=== PATIENT | male | born 1955 | race Caucasian/White ===

== ENCOUNTER → 2022-06-02 | Outpatient (CLI) | payer MEDICARE ==
[~2022-06-02] MED LIST: BACL1TAB9 PO; ELIQ5TAB PO; GASTROGRAFIN SOLUTION 30ML (Q9963) As Ordered ONE; HYDR-3490 PO; ISOVUE-370 76% 100ML VIAL As Ordered ONE; LISI40TA4 PO; NAPR-885 PO; NORT25CA2 PO; RILU1TAB2 PO; TIZA10TA PO
== END ==
LOC: M RAD 09:22
PROVIDERS: ATTEND Colon & Rectal Surgery
DX: C24.0 Malignant neoplasm of extrahepatic bile duct (principal)
CPT/HCPCS: 71260; 74178; Q9963; Q9967

== ENCOUNTER → 2022-07-23 | Outpatient (CLI) | payer MEDICARE ==
[~2022-07-23] MED LIST changes: -GASTROGRAFIN SOLUTION 30ML (Q9963) As Ordered ONE; -ISOVUE-370 76% 100ML VIAL As Ordered ONE
== END ==
LOC: M PAL 14:21
PROVIDERS: ATTEND Nurse Practitioner Adult Health
DX: C25.9 Malignant neoplasm of pancreas, unspecified (principal); G12.21 Amyotrophic lateral sclerosis

== ENCOUNTER → 2022-07-23 | Outpatient (CLI) | payer MEDICARE | LOC: M ONCR 14:25 | PROVIDERS: ATTEND General Practice | DX: C25.0 Malignant neoplasm of head of pancreas (principal); G12.21 Amyotrophic lateral sclerosis; I48.91 Unspecified atrial fibrillation; Z79.01 Long term (current) use of anticoagulants; Z79.1 Long term (current) use of non-steroidal anti-inflammatories (NSAID); Z79.899 Other long term (current) drug therapy; Z80.0 Family history of malignant neoplasm of digestive organs; Z87.891 Personal history of nicotine dependence ==

== ENCOUNTER → 2022-08-06 | Outpatient (CLI) | payer MEDICARE ==
[~2022-08-06] MED LIST changes: +GASTROGRAFIN SOLUTION 30ML (Q9963) As Ordered ONE; +ISOVUE-370 76% 100ML VIAL As Ordered ONE
== END ==
LOC: M RAD 11:34
PROVIDERS: ATTEND General Practice
DX: C25.0 Malignant neoplasm of head of pancreas (principal)
CPT/HCPCS: 74170; Q9963; Q9967

== ENCOUNTER → 2022-08-21 | Outpatient (RCR) | payer MEDICARE ==
[~2022-08-21] MED LIST changes: -GASTROGRAFIN SOLUTION 30ML (Q9963) As Ordered ONE; -ISOVUE-370 76% 100ML VIAL As Ordered ONE; +ONDA4TAB6 PO
== END ==
LOC: M ONCR 08-06 07:30
PROVIDERS: ATTEND General Practice
DX: C25.0 Malignant neoplasm of head of pancreas (principal)

== ENCOUNTER → 2022-08-27 | Outpatient (CLI) | payer MEDICARE | LOC: M PAL 13:06 | PROVIDERS: ATTEND Nurse Practitioner Family | DX: Z53.9 Procedure and treatment not carried out, unspecified reason (principal) ==

== ENCOUNTER 2022-09-06 22:10 | Inpatient (IN) | payer MEDICARE ==
[~2022-09-06] VITALS: Ht 182.9 cm; Wt 79.5 kg
[2022-09-06 23:07] LABS: INR 1.07; PROTHROMBIN TIME 14.1 SECONDS (12.5-14.5)
[2022-09-06] MEDS ORDERED: NS 500 ML IV ONE (23:30)
[2022-09-06 23:33] LABS: ALBUMIN 2.4 GM/DL (3.2-5.2); ALT/SGPT 143 U/L (12-78); BILIRUBIN,DIRECT 0.1 MG/DL (0.0-0.2); BILIRUBIN,TOTAL 0.5 MG/DL (0.2-1.0); BLOOD UREA NITROGEN 16 MG/DL (7-18); CALCIUM LEVEL 7.7 MG/DL (8.8-10.2); CARBON DIOXIDE LEVEL 23 MEQ/L (21-32); CHLORIDE LEVEL 96 MEQ/L (98-107); CREATININE FOR GFR 0.79 MG/DL (0.70-1.30); GLOMERULAR FILTRATION RATE > 60.0 (>49); GLUCOSE, FASTING 116 MG/DL (70-100); POTASSIUM SERUM 3.8 MEQ/L (3.5-5.1); SODIUM LEVEL 127 MEQ/L (136-145); TOTAL PROTEIN 5.7 GM/DL (6.4-8.2)
[2022-09-07] MEDS ORDERED: cefTRIAXone SOD 2 GM in D5W MINI-BAG PLUS 50 ML IV ONE (00:10)
[2022-09-07] MEDS ORDERED: NS 2,220 ML in IV 1 EA IV ONE (00:10)
[2022-09-07] MEDS ORDERED: ELIQ5TAB PO (00:39)
[2022-09-07] MEDS ORDERED: HOME MED LIST COMPLETE! XX SCH (00:45)
[2022-09-07 00:46] LABS: RED BLOOD COUNT 4.07 10^6/uL (4.30-6.10); WHITE BLOOD COUNT 3.9 10^3/uL (4.0-10.0)
[2022-09-07 00:47] LABS: BASO % 0.5 % (0.0-1.0); EOS % 0.3 % (0.0-3.0); HEMOGLOBIN 12.1 g/dl (13.5-17.5); LYMPH # 0.4 10^3/uL (1.5-5.0); MEAN CORPUSCULAR HEMOGLOBIN 29.7 pg (27.0-33.0); MEAN CORPUSCULAR HGB CONC 34.6 g/dl (32.0-36.5); MONO # 0.5 10^3/uL (0.0-0.8); MONO % 11.8 % (2.0-8.0); NEUTROPHILS # 2.9 10^3/uL (1.5-8.5); NEUTROPHILS % 75.1 % (36.0-66.0); PLATELET COUNT, AUTOMATED 237 10^3/uL (150-450)
[2022-09-07 05:15] LABS: OSMOLALITY URINE 472 MOSM/KG (50-1400)
[2022-09-07 05:29] LABS: SODIUM,RANDOM URINE 74 MEQ/L
[2022-09-07] MEDS ORDERED: NS 1,000 ML IV SCH (05:30)
[2022-09-07] MEDS ORDERED: REMDESIVIR 200 MG in NS 250 ML IV ONE (06:00)
[2022-09-07 06:47] LABS: BLOOD UREA NITROGEN 13 MG/DL (7-18); CALCIUM LEVEL 7.5 MG/DL (8.8-10.2); CARBON DIOXIDE LEVEL 24 MEQ/L (21-32); CHLORIDE LEVEL 100 MEQ/L (98-107); CREATININE FOR GFR 0.62 MG/DL (0.70-1.30); GLOMERULAR FILTRATION RATE > 60.0 (>49); GLUCOSE, FASTING 93 MG/DL (70-100); POTASSIUM SERUM 3.5 MEQ/L (3.5-5.1); SODIUM LEVEL 130 MEQ/L (136-145); URIC ACID 3.6 MG/DL (3.5-7.2)
[2022-09-07] MEDS ORDERED: SODIUM CHLORIDE 0.9% INJ 10 ML SYR IV ONE (08:00)
[2022-09-07] MEDS ORDERED: PILL CUTTER 1 EACH XX ONE ×2 (08:37→12:41)
[2022-09-07] MEDS: APIXABAN 5 MG TAB (ELIQUIS) PO SCH ×2 (08:56→21:54)
[2022-09-07] MEDS: BACLOFEN 10 MG TAB PO SCH ×4 (08:56→21:52)
[2022-09-07] MEDS: tiZANidine 4 MG TAB PO SCH ×3 (08:57→21:54)
[2022-09-07] MEDS ORDERED: ACETAMINOPHEN 500 MG TAB PO PRN (10:00)
[2022-09-07] MEDS ORDERED: NS 500 ML IV ONE (10:30)
[2022-09-07 10:59] LABS: BLOOD UREA NITROGEN 12 MG/DL (7-18); CALCIUM LEVEL 7.5 MG/DL (8.8-10.2); CARBON DIOXIDE LEVEL 23 MEQ/L (21-32); CHLORIDE LEVEL 100 MEQ/L (98-107); GLOMERULAR FILTRATION RATE > 60.0 (>49); GLUCOSE, FASTING 165 MG/DL (70-100); POTASSIUM SERUM 3.3 MEQ/L (3.5-5.1); SODIUM LEVEL 130 MEQ/L (136-145)
[2022-09-07] MEDS ORDERED: POTASSIUM CHLORIDE 10MEQ SR TABLET PO ONE (12:35)
[2022-09-07] MEDS: NS 1,000 ML IV SCH (13:05)
[2022-09-07 17:15] LABS: BLOOD UREA NITROGEN 12 MG/DL (7-18); CALCIUM LEVEL 7.6 MG/DL (8.8-10.2); CARBON DIOXIDE LEVEL 24 MEQ/L (21-32); CHLORIDE LEVEL 103 MEQ/L (98-107); CREATININE FOR GFR 0.66 MG/DL (0.70-1.30); GLOMERULAR FILTRATION RATE > 60.0 (>49); GLUCOSE, FASTING 90 MG/DL (70-100); POTASSIUM SERUM 3.5 MEQ/L (3.5-5.1); SODIUM LEVEL 134 MEQ/L (136-145)
[2022-09-07] MEDS ORDERED: RILUZOLE 50 MG PO SCH (17:30)
[2022-09-07 17:50] VITALS: BP 99/65
[2022-09-07 20:00] VITALS: BP 109/74; O2SAT 95
[2022-09-07 21:01] LABS: BLOOD UREA NITROGEN 12 MG/DL (7-18); CALCIUM LEVEL 7.6 MG/DL (8.8-10.2); CARBON DIOXIDE LEVEL 23 MEQ/L (21-32); CHLORIDE LEVEL 102 MEQ/L (98-107); CREATININE FOR GFR 0.63 MG/DL (0.70-1.30); GLOMERULAR FILTRATION RATE > 60.0 (>49); GLUCOSE, FASTING 84 MG/DL (70-100); POTASSIUM SERUM 3.6 MEQ/L (3.5-5.1); SODIUM LEVEL 133 MEQ/L (136-145)
[2022-09-07] MEDS: NORTRIPTYLINE 25 MG CAP PO SCH (21:54)
[2022-09-07 23:45] VITALS: BP 114/62
[2022-09-08] VITALS (8 sets, daily range): BP systolic 110–123; BP diastolic 63–80; O2SAT 94–96
[2022-09-08] MEDS: UNRESOLVED PATIENT OWN MED ORDER XX SCH (00:01)
[2022-09-08 00:52] LABS: BLOOD UREA NITROGEN 11 MG/DL (7-18); CALCIUM LEVEL 7.3 MG/DL (8.8-10.2); CARBON DIOXIDE LEVEL 24 MEQ/L (21-32); CHLORIDE LEVEL 103 MEQ/L (98-107); CREATININE FOR GFR 0.68 MG/DL (0.70-1.30); GLOMERULAR FILTRATION RATE > 60.0 (>49); GLUCOSE, FASTING 154 MG/DL (70-100); POTASSIUM SERUM 3.6 MEQ/L (3.5-5.1); SODIUM LEVEL 134 MEQ/L (136-145)
[2022-09-08] MEDS: BACLOFEN 10 MG TAB PO SCH ×6 (00:57→21:50)
[2022-09-08] MEDS ORDERED: ACETAMINOPHEN TAB 650MG DOSE (2X325MG) PO PRN (01:00)
[2022-09-08 04:12] LABS: BASO % 1.1 % (0.0-1.0); EOS % 1.4 % (0.0-3.0); HEMATOCRIT 34.8 % (42.0-52.0); HEMOGLOBIN 11.4 g/dl (13.5-17.5); LYMPH # 0.6 10^3/uL (1.5-5.0); LYMPH % 22.1 % (24.0-44.0); MEAN CORPUSCULAR HEMOGLOBIN 28.9 pg (27.0-33.0); MEAN CORPUSCULAR HGB CONC 32.8 g/dl (32.0-36.5); MEAN CORPUSCULAR VOLUME 88.1 fl (80.0-96.0); MONO # 0.3 10^3/uL (0.0-0.8); MONO % 10.9 % (2.0-8.0); NEUTROPHILS # 1.8 10^3/uL (1.5-8.5); NEUTROPHILS % 63.8 % (36.0-66.0); PLATELET COUNT, AUTOMATED 214 10^3/uL (150-450); RED BLOOD COUNT 3.95 10^6/uL (4.30-6.10); WHITE BLOOD COUNT 2.9 10^3/uL (4.0-10.0)
[2022-09-08 04:43] LABS: ALBUMIN 2.2 GM/DL (3.2-5.2); ALT/SGPT 102 U/L (12-78); BILIRUBIN,DIRECT 0.1 MG/DL (0.0-0.2); BILIRUBIN,TOTAL 0.3 MG/DL (0.2-1.0); BLOOD UREA NITROGEN 10 MG/DL (7-18); CALCIUM LEVEL 7.3 MG/DL (8.8-10.2); CARBON DIOXIDE LEVEL 24 MEQ/L (21-32); CHLORIDE LEVEL 103 MEQ/L (98-107); GLOMERULAR FILTRATION RATE > 60.0 (>49); GLUCOSE, FASTING 92 MG/DL (70-100); POTASSIUM SERUM 3.4 MEQ/L (3.5-5.1); SODIUM LEVEL 134 MEQ/L (136-145); TOTAL PROTEIN 4.9 GM/DL (6.4-8.2)
[2022-09-08] MEDS: NS 1,000 ML IV SCH (05:15)
[2022-09-08] MEDS ORDERED: REMDESIVIR 100 MG in NS 250 ML IV SCH (06:00)
[2022-09-08] MEDS ORDERED: SODIUM CHLORIDE 0.9% INJ 10 ML SYR IV SCH (07:00)
[2022-09-08] MEDS: tiZANidine 4 MG TAB PO SCH ×3 (08:00→21:52)
[2022-09-08] MEDS ORDERED: FLUBLOK(EGG FREE)(QUAD)INFLUENZA VACC 0.5ML SYRINGE 18YRS & OLDER IM.IMMUN ONE (09:00)
[2022-09-08] MEDS: POTASSIUM CHLORIDE 10MEQ SR TABLET PO SCH (12:09)
[2022-09-08] MEDS: APIXABAN 5 MG TAB (ELIQUIS) PO SCH ×2 (12:09→21:52)
[2022-09-08] MEDS: NORTRIPTYLINE 25 MG CAP PO SCH (21:52)
[2022-09-09] VITALS: BP 113/76; O2SAT 95
[2022-09-09] MEDS: UNRESOLVED PATIENT OWN MED ORDER XX SCH ×2 (00:01→20:28)
[2022-09-09] MEDS: BACLOFEN 10 MG TAB PO SCH ×6 (00:52→20:28)
[2022-09-09 04:00] VITALS: BP 136/80; O2SAT 95
[2022-09-09 05:51] LABS: BASO % 0.4 % (0.0-1.0); EOS # 0.1 10^3/uL (0.0-0.5); EOS % 2.8 % (0.0-3.0); HEMATOCRIT 35.7 % (42.0-52.0); HEMOGLOBIN 11.9 g/dl (13.5-17.5); LYMPH # 0.7 10^3/uL (1.5-5.0); MEAN CORPUSCULAR HGB CONC 33.3 g/dl (32.0-36.5); MEAN CORPUSCULAR VOLUME 87.1 fl (80.0-96.0); MONO # 0.2 10^3/uL (0.0-0.8); MONO % 7.4 % (2.0-8.0); NEUTROPHILS # 1.8 10^3/uL (1.5-8.5); NEUTROPHILS % 64.7 % (36.0-66.0); PLATELET COUNT, AUTOMATED 208 10^3/uL (150-450); WHITE BLOOD COUNT 2.8 10^3/uL (4.0-10.0)
[2022-09-09 06:32] LABS: ALBUMIN 2.2 GM/DL (3.2-5.2); ALT/SGPT 78 U/L (12-78); BILIRUBIN,TOTAL 0.4 MG/DL (0.2-1.0); BLOOD UREA NITROGEN 8 MG/DL (7-18); CALCIUM LEVEL 7.6 MG/DL (8.8-10.2); CARBON DIOXIDE LEVEL 26 MEQ/L (21-32); CHLORIDE LEVEL 103 MEQ/L (98-107); CREATININE FOR GFR 0.53 MG/DL (0.70-1.30); GLOMERULAR FILTRATION RATE > 60.0 (>49); GLUCOSE, FASTING 83 MG/DL (70-100); POTASSIUM SERUM 3.7 MEQ/L (3.5-5.1); SODIUM LEVEL 135 MEQ/L (136-145); TOTAL PROTEIN 4.9 GM/DL (6.4-8.2)
[2022-09-09 08:00] VITALS: BP 122/88; O2SAT 95
[2022-09-09] MEDS: APIXABAN 5 MG TAB (ELIQUIS) PO SCH ×2 (08:44→20:28)
[2022-09-09] MEDS: tiZANidine 4 MG TAB PO SCH ×3 (08:44→20:28)
[2022-09-09] MEDS: POTASSIUM CHLORIDE 10MEQ SR TABLET PO SCH (08:44)
[2022-09-09 12:14] VITALS: BP 113/71
[2022-09-09 20:00] VITALS: O2SAT 95
[2022-09-09] MEDS: NORTRIPTYLINE 25 MG CAP PO SCH (20:28)
[2022-09-09 20:33] VITALS: BP 132/80
[2022-09-10] VITALS: O2SAT 94
[2022-09-10] MEDS: BACLOFEN 10 MG TAB PO SCH ×6 (00:20→20:41)
[2022-09-10 04:30] VITALS: BP 122/74
[2022-09-10 06:28] LABS: BASO % 0.8 % (0.0-1.0); EOS # 0.1 10^3/uL (0.0-0.5); EOS % 3.5 % (0.0-3.0); HEMATOCRIT 36.5 % (42.0-52.0); HEMOGLOBIN 12.4 g/dl (13.5-17.5); LYMPH # 0.7 10^3/uL (1.5-5.0); LYMPH % 26.1 % (24.0-44.0); MEAN CORPUSCULAR HEMOGLOBIN 29.2 pg (27.0-33.0); MEAN CORPUSCULAR VOLUME 85.9 fl (80.0-96.0); MONO # 0.2 10^3/uL (0.0-0.8); MONO % 7.4 % (2.0-8.0); NEUTROPHILS # 1.6 10^3/uL (1.5-8.5); PLATELET COUNT, AUTOMATED 214 10^3/uL (150-450); RED BLOOD COUNT 4.25 10^6/uL (4.30-6.10); WHITE BLOOD COUNT 2.6 10^3/uL (4.0-10.0)
[2022-09-10 07:00] LABS: ALBUMIN 2.3 GM/DL (3.2-5.2); ALT/SGPT 96 U/L (12-78); BILIRUBIN,TOTAL 0.4 MG/DL (0.2-1.0); BLOOD UREA NITROGEN 9 MG/DL (7-18); CALCIUM LEVEL 7.7 MG/DL (8.8-10.2); CARBON DIOXIDE LEVEL 26 MEQ/L (21-32); CHLORIDE LEVEL 102 MEQ/L (98-107); CREATININE FOR GFR 0.52 MG/DL (0.70-1.30); GLOMERULAR FILTRATION RATE > 60.0 (>49); GLUCOSE, FASTING 89 MG/DL (70-100); POTASSIUM SERUM 3.9 MEQ/L (3.5-5.1); SODIUM LEVEL 135 MEQ/L (136-145)
[2022-09-10 08:00] VITALS: O2SAT 95
[2022-09-10] MEDS: tiZANidine 4 MG TAB PO SCH ×3 (08:00→20:41)
[2022-09-10] MEDS: APIXABAN 5 MG TAB (ELIQUIS) PO SCH ×2 (10:25→20:41)
[2022-09-10] MEDS: POTASSIUM CHLORIDE 10MEQ SR TABLET PO SCH (10:28)
[2022-09-10 12:00] VITALS: O2SAT 95
[2022-09-10 16:55] VITALS: O2SAT 95
[2022-09-10] MEDS: UNRESOLVED PATIENT OWN MED ORDER XX SCH (20:41)
[2022-09-10] MEDS: NORTRIPTYLINE 25 MG CAP PO SCH (20:41)
[2022-09-11] MEDS: BACLOFEN 10 MG TAB PO SCH ×6 (00:16→20:45)
[2022-09-11 06:00] VITALS: BP 128/82
[2022-09-11 08:00] VITALS: O2SAT 92
[2022-09-11] MEDS: tiZANidine 4 MG TAB PO SCH ×3 (09:34→20:46)
[2022-09-11] MEDS: POTASSIUM CHLORIDE 10MEQ SR TABLET PO SCH (09:34)
[2022-09-11] MEDS: APIXABAN 5 MG TAB (ELIQUIS) PO SCH ×2 (09:34→20:46)
[2022-09-11 12:00] VITALS: O2SAT 92
[2022-09-11 16:00] VITALS: O2SAT 92
[2022-09-11 17:50] VITALS: BP 130/78
[2022-09-11] MEDS: NORTRIPTYLINE 25 MG CAP PO SCH (20:46)
[2022-09-11 20:55] VITALS: O2SAT 94
[2022-09-12] MEDS: BACLOFEN 10 MG TAB PO SCH ×6 (00:20→20:41)
[2022-09-12 00:23] VITALS: O2SAT 94
[2022-09-12 04:45] VITALS: BP 137/74; O2SAT 90
[2022-09-12] MEDS: POTASSIUM CHLORIDE 10MEQ SR TABLET PO SCH (08:56)
[2022-09-12] MEDS: APIXABAN 5 MG TAB (ELIQUIS) PO SCH ×2 (08:57→20:41)
[2022-09-12] MEDS: tiZANidine 4 MG TAB PO SCH ×3 (08:57→20:41)
[2022-09-12 20:00] VITALS: O2SAT 93
[2022-09-12] MEDS: NORTRIPTYLINE 25 MG CAP PO SCH (20:42)
[2022-09-13] VITALS: O2SAT 94
[2022-09-13] MEDS: BACLOFEN 10 MG TAB PO SCH ×7 (00:40→23:55)
[2022-09-13 04:50] VITALS: BP 125/77
[2022-09-13 04:55] VITALS: O2SAT 93
[2022-09-13] MEDS: POTASSIUM CHLORIDE 10MEQ SR TABLET PO SCH (09:27)
[2022-09-13] MEDS: tiZANidine 4 MG TAB PO SCH ×3 (09:27→20:11)
[2022-09-13] MEDS: APIXABAN 5 MG TAB (ELIQUIS) PO SCH ×2 (09:27→20:12)
[2022-09-13] MEDS: NORTRIPTYLINE 25 MG CAP PO SCH (20:11)
[2022-09-14] MEDS: BACLOFEN 10 MG TAB PO SCH ×6 (03:57→23:21)
[2022-09-14 06:00] VITALS: BP 130/77
[2022-09-14 08:00] VITALS: O2SAT 92
[2022-09-14] MEDS: APIXABAN 5 MG TAB (ELIQUIS) PO SCH ×2 (08:18→20:17)
[2022-09-14] MEDS: tiZANidine 4 MG TAB PO SCH ×3 (08:18→20:19)
[2022-09-14] MEDS: POTASSIUM CHLORIDE 10MEQ SR TABLET PO SCH (08:18)
[2022-09-14 12:00] VITALS: O2SAT 93
[2022-09-14 16:00] VITALS: O2SAT 94
[2022-09-14 18:00] VITALS: O2SAT 94
[2022-09-14 19:50] VITALS: BP 145/89
[2022-09-14] MEDS: NORTRIPTYLINE 25 MG CAP PO SCH (20:17)
[2022-09-15] MEDS: BACLOFEN 10 MG TAB PO SCH ×5 (03:32→19:28)
[2022-09-15 04:00] VITALS: BP 139/97
[2022-09-15 08:00] VITALS: O2SAT 93
[2022-09-15] MEDS: APIXABAN 5 MG TAB (ELIQUIS) PO SCH ×2 (09:40→19:28)
[2022-09-15] MEDS: POTASSIUM CHLORIDE 10MEQ SR TABLET PO SCH (09:40)
[2022-09-15] MEDS: tiZANidine 4 MG TAB PO SCH ×3 (09:40→19:28)
[2022-09-15 12:00] VITALS: O2SAT 94
[2022-09-15] MEDS: NORTRIPTYLINE 25 MG CAP PO SCH (19:27)
[2022-09-16] MEDS: BACLOFEN 10 MG TAB PO SCH ×6 (00:24→20:29)
[2022-09-16 04:30] VITALS: BP 137/82
[2022-09-16] MEDS: APIXABAN 5 MG TAB (ELIQUIS) PO SCH ×2 (09:02→20:29)
[2022-09-16] MEDS: POTASSIUM CHLORIDE 10MEQ SR TABLET PO SCH (09:02)
[2022-09-16] MEDS: tiZANidine 4 MG TAB PO SCH ×3 (09:02→20:29)
[2022-09-16] MEDS ORDERED: POTA-136 PO (14:55)
[2022-09-16] MEDS ORDERED: RILUZOLE 50 MG PO SCH (16:35)
[2022-09-16] MEDS: NORTRIPTYLINE 25 MG CAP PO SCH (20:29)
[2022-09-17] MEDS: BACLOFEN 10 MG TAB PO SCH ×4 (00:29→12:16)
[2022-09-17 04:00] VITALS: BP 139/60
[2022-09-17] MEDS: tiZANidine 4 MG TAB PO SCH ×2 (08:27→12:16)
[2022-09-17] MEDS: POTASSIUM CHLORIDE 10MEQ SR TABLET PO SCH (08:28)
[2022-09-17] MEDS: APIXABAN 5 MG TAB (ELIQUIS) PO SCH (08:28)
== END 2022-09-17 12:52 | DRG 178 ==
LOC: M ED 22:10 → M ED INP 09-07 04:37 → ENRESERV 09-07 16:32 → M 4MAIN 09-07 17:45 → M MSPAV 09-11 17:54 → M 4MAIN 09-14 19:46
PROVIDERS: ADMIT Internal Medicine; ATTEND General Practice
DX: U07.1 COVID-19 (principal); E87.1 Hypo-osmolality and hyponatremia; G12.21 Amyotrophic lateral sclerosis; E46 Unspecified protein-calorie malnutrition; C25.9 Malignant neoplasm of pancreas, unspecified; R64 Cachexia; I48.20 Chronic atrial fibrillation, unspecified; E87.20 Acidosis, unspecified; I95.9 Hypotension, unspecified; R74.01 Elevation of levels of liver transaminase levels; R53.1 Weakness; J38.3 Other diseases of vocal cords; E86.0 Dehydration; E87.6 Hypokalemia; Z74.01 Bed confinement status; R33.9 Retention of urine, unspecified; Z92.3 Personal history of irradiation; Z79.899 Other long term (current) drug therapy; Z79.01 Long term (current) use of anticoagulants; Z66 Do not resuscitate